=== PATIENT | female | born 1955 | race Two or more races ===

== ENCOUNTER 2018-03-27 09:07 | Outpatient (CLI) | payer OTHER | END 2018-03-27 10:49 | disposition home or self-care (01) | LOC: RAD 09:07 → MAMO-SONO 09:07 → RAD 10:49 | DX: Z12.31 Encounter for screening mammogram for malignant neoplasm of breast (principal); M99.01 Segmental and somatic dysfunction of cervical region; M99.02 Segmental and somatic dysfunction of thoracic region; M99.03 Segmental and somatic dysfunction of lumbar region; N60.19 Diffuse cystic mastopathy of unspecified breast ==

== ENCOUNTER 2018-03-27 10:16 | Outpatient (CLI) | payer OTHER | END 2018-03-27 10:18 | disposition home or self-care (01) | LOC: NUCLEAR 10:16 | DX: M81.0 Age-related osteoporosis without current pathological fracture (principal) ==

== ENCOUNTER 2018-06-16 10:33 | Outpatient (CLI) | payer OTHER | END 2018-06-16 17:00 | disposition home or self-care (01) | LOC: MRI 10:33 | DX: D16.32 Benign neoplasm of short bones of left lower limb (principal) | CPT/HCPCS: 73719 ==

== ENCOUNTER 2019-07-21 07:27 | Outpatient (CLI) | payer OTHER | END 2019-07-21 17:00 | disposition home or self-care (01) | LOC: SONOGRAMA 07:27 → MAMO-SONO 08:45 → SONOGRAMA 17:00 | DX: M79.641 Pain in right hand (principal); M79.669 Pain in unspecified lower leg; N84.2 Polyp of vagina ==

== ENCOUNTER 2019-08-11 08:43 | Outpatient (CLI) | payer OTHER | END 2019-08-11 09:44 | disposition home or self-care (01) | LOC: MAMO-SONO 08:43 | DX: Z12.31 Encounter for screening mammogram for malignant neoplasm of breast (principal); Z87.898 Personal history of other specified conditions; N60.11 Diffuse cystic mastopathy of right breast; N60.12 Diffuse cystic mastopathy of left breast ==

== ENCOUNTER → 2021-01-03 | Outpatient (CLI) | payer OTHER | END | disposition home or self-care (01) | LOC: RAD 09:56 | PROVIDERS: ATTEND Family Medicine | DX: M25.762 Osteophyte, left knee (principal); M51.35 Other intervertebral disc degeneration, thoracolumbar region ==

== ENCOUNTER 2022-11-04 10:39 | Outpatient (CLI) | payer OTHER | END 2022-11-04 11:00 | disposition home or self-care (01) | LOC: MAMO-SONO 10:39 → NUCLEAR 13:15 | PROVIDERS: ATTEND Family Medicine | DX: N60.11 Diffuse cystic mastopathy of right breast (principal); N60.12 Diffuse cystic mastopathy of left breast ==

== ENCOUNTER 2022-11-04 12:30 | Outpatient (CLI) | payer OTHER | END 2022-11-04 12:39 | disposition home or self-care (01) | LOC: NUCLEAR 12:30 | PROVIDERS: ATTEND Family Medicine | DX: M81.0 Age-related osteoporosis without current pathological fracture (principal) ==

== ENCOUNTER 2024-09-20 09:02 | Outpatient (CLI) | payer OTHER | END 2024-09-20 09:40 | disposition home or self-care (01) | LOC: TOM 09:02 | DX: H81.4 Vertigo of central origin (principal) ==